=== PATIENT | male | born 1985 | race Caucasian/White ===

== ENCOUNTER 2016-10-16 07:50 | Day surgery (SDC) | payer BC ==
[~2016-10-16] VITALS: Ht 182.9 cm; Wt 61.2 kg
[~2016-10-16 07:50] MED LIST: ANTI INFLAMMATORY PO; DOXYCYCLINE HY100 MG PO; FLEXERIL10 MG PO; MOTRIN800 MG PO; NEURONTIN300 MG PO; NOHOMEMEDS
[2016-10-16] MEDS ORDERED: ARTHROTEC 501 TABLET PO (08:00)
== END 2016-10-16 09:30 | disposition home or self-care (01) ==
LOC: PAIN 07:50 → SDC 08:15 → PAIN 09:30
DX: M50.13 Cervical disc disorder with radiculopathy, cervicothoracic region (principal); F20.9 Schizophrenia, unspecified; Z83.3 Family history of diabetes mellitus; Z81.1 Family history of alcohol abuse and dependence
CPT/HCPCS: J1030; J1200; J2250; J3010

== ENCOUNTER 2016-12-26 10:27 | Day surgery (SDC) | payer OTHER ==
[~2016-12-26] VITALS: Ht 182.9 cm; Wt 68.5 kg
[~2016-12-26 10:27] MED LIST changes: +ARTHROTEC 501 TABLET PO; +VOLTAREN 1% GE100 GM TP
== END 2016-12-26 12:10 | disposition home or self-care (01) ==
LOC: PAIN 10:27
PROC: 3E0S33Z Introduction of Anti-inflammatory into Epidural Space, Percutaneous Approach (ICD-10-PCS; principal; 2016-12-26)
DX: M50.121 Cervical disc disorder at C4-C5 level with radiculopathy (principal); M50.122 Cervical disc disorder at C5-C6 level with radiculopathy; M50.123 Cervical disc disorder at C6-C7 level with radiculopathy; F20.9 Schizophrenia, unspecified; F32.9 Major depressive disorder, single episode, unspecified; F41.9 Anxiety disorder, unspecified; M25.512 Pain in left shoulder; Z91.09 Other allergy status, other than to drugs and biological substances; Z88.5 Allergy status to narcotic agent
CPT/HCPCS: J1030; J1100; J2250; J3010

== ENCOUNTER 2017-05-29 08:45 | Day surgery (SDC) | payer OTHER ==
[~2017-05-29] VITALS: Ht 182.9 cm; Wt 63.5 kg
== END 2017-05-29 10:10 | disposition home or self-care (01) ==
LOC: SDC 08:45 → PAIN 08:45
DX: M47.22 Other spondylosis with radiculopathy, cervical region (principal); M50.222 Other cervical disc displacement at C5-C6 level; M50.10 Cervical disc disorder with radiculopathy, unspecified cervical region; F20.9 Schizophrenia, unspecified; Z79.891 Long term (current) use of opiate analgesic; Z88.5 Allergy status to narcotic agent; Z91.09 Other allergy status, other than to drugs and biological substances
CPT/HCPCS: J1030; J2250; J3010; S0020